=== PATIENT | female | born 1990 | race Caucasian/White ===

== ENCOUNTER 2016-12-27 16:05 | Emergency (ER) | payer SELFPAY ==
[~2016-12-27] VITALS: Ht 172.7 cm; Wt 56.9 kg
[2016-12-27 16:10] VITALS: BP 123/69
[2016-12-27] MEDS ORDERED: LOW-OGESTREL1 TABLET PO (16:28)
[2016-12-27] MEDS ORDERED: DIFLUCAN150 MG PO (16:53)
== END 2016-12-27 17:09 | disposition home or self-care (01) ==
LOC: EME 16:05
DX: S00.81XA Abrasion of other part of head, initial encounter (principal); W05.1XXA Fall from non-moving nonmotorized scooter, initial encounter; B37.3 Candidiasis of vulva and vagina; Z87.891 Personal history of nicotine dependence
CPT/HCPCS: 99281; 99285

== ENCOUNTER 2017-04-08 06:55 | Emergency (ER) | payer OTHER ==
[~2017-04-08] VITALS: Ht 170.2 cm; Wt 59.0 kg
[~2017-04-08 06:55] MED LIST: DIFLUCAN150 MG PO; LOW-OGESTREL1 TABLET PO
[2017-04-08 07:02] VITALS: BP 102/69
[2017-04-08] MEDS ORDERED: BIOTIN1000 MICRO PO (08:47)
[2017-04-08] MEDS ORDERED: MULTIVITAMIN1 EAC2 PO (08:48)
== END 2017-04-08 09:48 | disposition home or self-care (01) ==
LOC: EME 06:55
DX: S69.91XA Unspecified injury of right wrist, hand and finger(s), initial encounter (principal); S61.101A Unspecified open wound of right thumb with damage to nail, initial encounter; W10.9XXA Fall (on) (from) unspecified stairs and steps, initial encounter; Y92.009 Unspecified place in unspecified non-institutional (private) residence as the place of occurrence of the external cause; Z72.0 Tobacco use
CPT/HCPCS: 73140; 99281; 99283

== ENCOUNTER 2017-07-07 14:10 | Emergency (ER) | payer OTHER ==
[~2017-07-07] VITALS: Ht 170.2 cm; Wt 57.5 kg
[~2017-07-07 14:10] MED LIST changes: +BIOTIN1000 MICRO PO; +MULTIVITAMIN1 EAC2 PO
[2017-07-07 15:11] LABS: ADD MIUA? YES; BILIRUBIN NEGATIVE; BLOOD SMALL; COLOR STRAW ((YELLOW)); GLUCOSE (STRIP) NEGATIVE; KETONES NEGATIVE; LEUKOCYTES NEGATIVE; NITRITE NEGATIVE; PROTEIN (STRIP) NEGATIVE; SPECIFIC GRAVITY 1.004 (1.000-1.030); UROBILINOGEN 0.2 MG/DL (0.2-1.0)
[2017-07-07 15:16] LABS: BACTERIA NONE SEEN /HPF; EPITHELIAL CELLS RARE /HPF; MUCUS NONE SEEN /LPF; RED BLOOD CELLS 0-5 /HPF (0-5); UCUL ADDED? NO; WHITE BLOOD CELLS 0-5 /HPF (0-5)
[2017-07-07 15:23] LABS: MCH 32.8 PG (29.0-34.0); MCHC 33.8 G/DL (30.0-36.0); MEAN PLAT.VOLUME 9.8 uM^3 (9.5-12.4); PLATELET COUNT 189 K/uL (156-360); RBC DIS.WIDTH-CV 11.3 % (11.8-14.6); RBC DIS.WIDTH-SD 40.2 % (39-53); RED BLOOD COUNT 4.33 M/uL (3.80-5.20); WHITE BLOOD COUNT 7.7 K/uL (4.1-10.2)
[2017-07-07 17:21] VITALS: BP 110/79
== END 2017-07-07 17:25 | disposition home or self-care (01) ==
LOC: EME 14:10
DX: O03.9 Complete or unspecified spontaneous abortion without complication (principal); Z87.891 Personal history of nicotine dependence
CPT/HCPCS: 81003; 84702; 85027; 86900; 86901; 99281; 99284

== ENCOUNTER 2017-10-06 20:28 | Emergency (ER) | payer OTHER ==
[~2017-10-06] VITALS: Ht 170.2 cm; Wt 54.4 kg
[2017-10-06 21:24] LABS: HEMATOCRIT 39.3 % (36.0-46.0); MCH 32.7 PG (29.0-34.0); MCHC 34.1 G/DL (30.0-36.0); MCV 95.9 FL (83-99); MEAN PLAT.VOLUME 10.3 uM^3 (9.5-12.4); PLATELET COUNT 186 K/uL (156-360); RBC DIS.WIDTH-CV 11.7 % (11.8-14.6); RBC DIS.WIDTH-SD 40.8 % (39-53); WHITE BLOOD COUNT 10.5 K/uL (4.1-10.2)
[2017-10-06 21:36] LABS: CHLORIDE 103 mEq/L (99-109); POTASSIUM 3.6 mEq/L (3.7-5.4); SODIUM 140 mEq/L (136-147)
[2017-10-06 21:38] LABS: GLUCOSE 91 mg/dL (70-99)
[2017-10-06 21:39] LABS: ANION GAP 10 MEQ/L (2-14)
[2017-10-06 21:42] LABS: GFR ESTIMATE (CALCULATED) > 59 mL/min/
[2017-10-06 21:43] LABS: UREA NITROGEN (BUN) 7 mg/dL (9-23)
[2017-10-06 21:48] LABS: TROP-I INTERPRETATION NEGATIVE; TROPONIN-I < 0.01 ng/mL (0.0-0.30)
[2017-10-06 21:51] LABS: QUANTITATIVE HCG < 4.0 MIU/ML
[2017-10-06] MEDS ORDERED: NAPROSYN500 MG PO (21:58)
[2017-10-06 22:29] VITALS: BP 106/66
== END 2017-10-06 22:30 | disposition home or self-care (01) ==
LOC: EME 20:28
PROVIDERS: Nurse Practitioner Family
DX: R09.1 Pleurisy (principal); M94.0 Chondrocostal junction syndrome [Tietze]; Z87.891 Personal history of nicotine dependence; Z86.718 Personal history of other venous thrombosis and embolism; Z88.1 Allergy status to other antibiotic agents
CPT/HCPCS: 71020; 80048; 84484; 84702; 85027; 93005; 99281; 99284; J1885

== ENCOUNTER 2017-10-22 12:29 | Emergency (ER) | payer OTHER ==
[~2017-10-22] VITALS: Ht 172.7 cm; Wt 53.3 kg
[~2017-10-22 12:29] MED LIST changes: +NAPROSYN500 MG PO
[2017-10-22 13:35] LABS: HEMATOCRIT 40.7 % (36.0-46.0); HEMOGLOBIN 13.8 G/DL (11.9-15.5); MCH 32.2 PG (29.0-34.0); MCHC 33.9 G/DL (30.0-36.0); MCV 95.1 FL (83-99); PLATELET COUNT 202 K/uL (156-360); RBC DIS.WIDTH-CV 11.9 % (11.8-14.6); RBC DIS.WIDTH-SD 40.9 % (39-53); RED BLOOD COUNT 4.28 M/uL (3.80-5.20); WHITE BLOOD COUNT 6.3 K/uL (4.1-10.2)
[2017-10-22 13:45] LABS: ALBUMIN 4.4 g/dL (3.2-4.8); CHLORIDE 104 mEq/L (99-109); POTASSIUM 3.8 mEq/L (3.7-5.4); SODIUM 136 mEq/L (136-147)
[2017-10-22 13:47] LABS: GLUCOSE 85 mg/dL (70-99)
[2017-10-22 13:48] LABS: TOTAL PROTEIN 7.2 g/dL (6.4-8.3)
[2017-10-22 13:49] LABS: TOTAL BILIRUBIN 0.6 mg/dL (0.0-1.0)
[2017-10-22 13:51] LABS: ALKALINE PHOSPHATASE 48 IU/L (3-129); CREATININE 0.7 mg/dL (0.6-1.3); GFR ESTIMATE (CALCULATED) > 59 mL/min/
[2017-10-22 13:52] LABS: UREA NITROGEN (BUN) 9 mg/dL (9-23)
[2017-10-22 13:53] LABS: AST (GOT) 14 IU/L (2-34)
[2017-10-22 13:54] LABS: ALT (GPT) 12 IU/L (3-49)
[2017-10-22 13:56] LABS: QUANTITATIVE HCG 51.7 MIU/ML
[2017-10-22 15:04] LABS: APPEARANCE CLEAR ((CLEAR)); BILIRUBIN NEGATIVE; BLOOD SMALL; COLOR YELLOW ((YELLOW)); GLUCOSE (STRIP) NEGATIVE; KETONES NEGATIVE; LEUKOCYTES NEGATIVE; NITRITE NEGATIVE; PROTEIN (STRIP) NEGATIVE; SPECIFIC GRAVITY 1.006 (1.000-1.030); UROBILINOGEN 0.2 MG/DL (0.2-1.0)
[2017-10-22 15:13] LABS: BACTERIA RARE /HPF; EPITHELIAL CELLS RARE /HPF; MUCUS TRACE /LPF; RED BLOOD CELLS 0-5 /HPF (0-5); UCUL ADDED? NO; WHITE BLOOD CELLS 0-5 /HPF (0-5)
[2017-10-22 16:18] VITALS: BP 103/54
== END 2017-10-22 16:19 | disposition home or self-care (01) ==
LOC: EME 12:29
DX: O20.0 Threatened abortion (principal); Z3A.01 Less than 8 weeks gestation of pregnancy; Z87.891 Personal history of nicotine dependence; Z88.1 Allergy status to other antibiotic agents
CPT/HCPCS: 76801; 80053; 81003; 84702; 85027; 99281; 99284

== ENCOUNTER 2018-02-03 11:12 | Emergency (ER) | payer SELFPAY ==
[~2018-02-03] VITALS: Ht 172.7 cm; Wt 50.8 kg
[2018-02-03 11:52] LABS: BASOPHIL (%) 0.4 % (0-1); EOSINOPHIL (%) 0.2 % (0-5); HEMATOCRIT 40.6 % (36.0-46.0); HEMOGLOBIN 13.8 G/DL (11.9-15.5); IMMATURE GRANULOCYTE (%) 0.4 % (0.0-0.7); LYMPHOCYTE COUNT 1.5 K/uL (1.0-2.8); MCH 32.8 PG (29.0-34.0); MCV 96.4 FL (83-99); MONOCYTE (%) 6.1 % (3-12); MONOCYTE COUNT 0.3 K/uL (0-0.8); NEUTROPHIL (%) 65.9 % (45-76); NEUTROPHIL COUNT 3.6 K/uL (1.8-6.4); PLATELET COUNT 163 K/uL (156-360); RBC DIS.WIDTH-CV 12.3 % (11.8-14.6); RBC DIS.WIDTH-SD 43.7 % (39-53); RED BLOOD COUNT 4.21 M/uL (3.80-5.20); WHITE BLOOD COUNT 5.4 K/uL (4.1-10.2)
[2018-02-03 11:54] LABS: APPEARANCE SL.HAZY ((CLEAR)); BILIRUBIN NEGATIVE; BLOOD NEGATIVE; COLOR YELLOW ((YELLOW)); GLUCOSE (STRIP) NEGATIVE; KETONES NEGATIVE; LEUKOCYTES NEGATIVE; NITRITE NEGATIVE; PROTEIN (STRIP) NEGATIVE; SPECIFIC GRAVITY 1.015 (1.000-1.030); UROBILINOGEN 0.2 MG/DL (0.2-1.0)
[2018-02-03 12:04] LABS: BACTERIA NONE SEEN /HPF; EPITHELIAL CELLS RARE /HPF; MUCUS TRACE /LPF; RED BLOOD CELLS 0-5 /HPF (0-5); WHITE BLOOD CELLS 0-5 /HPF (0-5)
[2018-02-03 12:11] LABS: CHLORIDE 106 mEq/L (99-109); POTASSIUM 4.1 mEq/L (3.7-5.4); SODIUM 139 mEq/L (136-147)
[2018-02-03 12:13] LABS: GLUCOSE 83 mg/dL (70-99)
[2018-02-03 12:17] LABS: CREATININE 0.7 mg/dL (0.6-1.3); GFR ESTIMATE (CALCULATED) > 59 mL/min/
[2018-02-03 12:18] LABS: UREA NITROGEN (BUN) 7 mg/dL (9-23)
[2018-02-03 12:25] LABS: QUANTITATIVE HCG < 4.0 MIU/ML
[2018-02-03] MEDS ORDERED: PYRIDIUM100 MG PO (14:12)
[2018-02-03 14:21] VITALS: BP 110/60
== END 2018-02-03 14:21 | disposition home or self-care (01) ==
LOC: EME 11:12
PROVIDERS: Emergency Medicine
DX: R30.0 Dysuria (principal); Z87.59 Personal history of other complications of pregnancy, childbirth and the puerperium
CPT/HCPCS: 80048; 81003; 84702; 85025; 87086; 99281; 99284